=== PATIENT | female | born 1960 | race Caucasian/White ===

== ENCOUNTER 2020-07-14 08:36 | Day surgery (SDC) | payer OTHER | END 2020-07-14 22:36 | disposition home or self-care (01) | LOC: MOI US 08:36 → MOI MAM 09:00 → MOI US 09:30 | DX: C50.512 Malignant neoplasm of lower-outer quadrant of left female breast (principal); C77.3 Secondary and unspecified malignant neoplasm of axilla and upper limb lymph nodes; Z17.1 Estrogen receptor negative status [ER-] | CPT/HCPCS: 19083; 38505; 76942; 77065; 88305; 88360; A4648; G0279 ==

== ENCOUNTER 2024-04-02 06:53 | Day surgery (SDC) | payer OTHER ==
[~2024-04-02] VITALS: Ht 162.6 cm; Wt 58.5 kg
[~2024-04-02 06:53] MED LIST: ESTRADIOL42.5 GM VAG; LEVOTHYROXINE125 MCG PO; LIOT25 PO; LIOTHYRONINE PO; MULTIPLE VITAM1 EACH
[2024-04-02] MEDS ORDERED: COQ-10100 MG (07:14)
[2024-04-02] MEDS ORDERED: B COMPLEX FORM0.4 MG (07:15)
[2024-04-02] MEDS ORDERED: VITAMIN D310 MC4 (07:15)
[2024-04-02] MEDS ORDERED: CALCIUM ACETAT667 MG (07:16)
[2024-04-02] MEDS ORDERED: propofoL 50 ML IV ONE ×2 (07:38→08:25)
[2024-04-02] MEDS ORDERED: Lactated Ringer's 1,000 ML IV ONE ×2 (07:38→07:46)
[2024-04-02 09:29] VITALS: BP 97/64
== END 2024-04-02 09:20 | disposition home or self-care (01) ==
LOC: ORSCSDS 06:53
PROVIDERS: Surgery
PROC: 0DJD8ZZ Inspection of Lower Intestinal Tract, Via Natural or Artificial Opening Endoscopic (ICD-10-PCS; principal; 2024-04-02 08:00)
DX: Z12.11 Encounter for screening for malignant neoplasm of colon (principal); Z85.3 Personal history of malignant neoplasm of breast; Z79.899 Other long term (current) drug therapy; Z17.1 Estrogen receptor negative status [ER-]
CPT/HCPCS: J2704; J7120